=== PATIENT | female | born 1945 | race Caucasian/White ===

== ENCOUNTER 2021-09-24 13:53 | Emergency (ER) | payer OTHER ==
[2021-09-24 13:59] VITALS: BMI 25.9
[2021-09-24] MEDS ORDERED: BAMLANIVIMAB 700 MG, ETESEVIMAB 1,400 MG in SODIUM CHLORIDE 100 ML IVPB ONE (15:00)
[2021-09-24 15:20] VITALS: TEMP 98
[2021-09-24 16:18] VITALS: BP 139/78; PULSE 89
== END 2021-09-24 17:00 | disposition home or self-care (01) ==
LOC: JCOVINFU 13:53
PROC: 3E033GC Introduction of Other Therapeutic Substance into Peripheral Vein, Percutaneous Approach (ICD-10-PCS; principal; 2021-09-24)
DX: U07.1 COVID-19 (principal)
CPT/HCPCS: 99284-25; M0245; Q0245